=== PATIENT | female | born 1940 | race Caucasian/White ===

== ENCOUNTER 2016-08-16 18:02 | Observation (INO) ==
[2016-08-16] MEDS ORDERED: Aspirin 81 MG TAB.CHEW PO ONE (20:24)
[2016-08-16 20:28] LABS: Bilirubin,Urine Negative (Negative); Blood,Urine Negative (Negative); Clarity,Urine Clear (Clear); Color,Urine Yellow (Yellow); Glucose,Urine (UA) Normal (Normal); Ketones,Urine Negative (Negative); Leukocyte Esterase,Urine Trace (Negative); Nitrite,Urine Negative (Negative); PH,Urine 5.5 pH Units (5.0-8.0); Protein,Urine Negative (Neg-Trace); Specific Gravity,Urine 1.024 (1.010-1.025); Urobilinogen,Urine Normal (Normal)
[2016-08-16 20:29] LABS: Bacteria,Urine None Seen per hpf (None-Few); Hyaline Casts,Urine None Seen per lpf (None-Few); RBC,Urine 0-3 per hpf (0-3); Squamous Epithelial Cell,Urine Moderate per lpf (None-Few)
--- NOTE | 2016-08-16 20:29 | Emergency Department Note ---
Disposition Clinical Impression: Dyspnea on exertion, Neck pain Disposition: Admitted As Inpatient Condition: Good Time of Disposition: 21:34 General Adult HPI - General Chief complaint: ED Dizziness Stated complaint: dizzy, sob, shoulder pain Time Seen by Provider: 08/16/16 18:38 Source: patient Mode of arrival: private vehicle Limitations: no limitations Nursing Notes Reviewed: Yes Vital Signs Reviewed: Yes - History of Present Illness HPI Narrative: 76-year-old female presents today with chief complaint of exertional dyspnea and left-sided neck pain that radiates down to her left shoulder. She does not believe that the pain is worse with exertion and cannot note any inciting or remitting factors. She notes that the pain is a sharp pain. She states that normally she is able to walk 100 feet without any dyspnea, but has been more significant over the last couple days to where she can only walk 10 feet or so without getting short of breath. She has history of COPD, but states that this is under control and denies any cough at this time. She denies any diaphoresis , nausea or vomiting, abdominal pain, change in urination or bowel movements, rashes or edema. She does not also note sensation of vertigo which she specifically notes is worse when bowing down to receiving communion at [facility]. It is also worse when she lies down flat. It is not worse with standing up or turning her head. She states that occasionally it will cause her some lightheadedness, but usually just the vertigo. She has not had a syncope or falls. She is not on any anticoagulants at home. She denies any cardiac history, has not had a workup for her heart that she can recall. Pain Scale: 9 - Related Data Allergies Allergy/AdvReac Type Severity Reaction Status Date / Time Pork/Porcine Containing Allergy Hives Verified 08/16/16 18:32 Products All systems ED: reviewed and negative except as stated. Past Medical History - Past Medical History Attestation: Yes The following information was validated with the patient. Source: patient Medical history: Reports: asthma, COPD Psychiatric history: Reports: no psych history - Social History Smoking Status: Former smoker Smokeless Tobacco Status: No Alcohol use: Reports: none Drug use: Reports: none Physical Exam - Head Head exam: atraumatic, normocephalic, normal inspection - Eye Eye exam: Present: normal appearance, PERRL, EOMI - ENT ENT exam: normal exam, normal oropharynx, mucous membranes moist - Neck Neck exam: Present: normal inspection, full ROM, trachea midline - Chest Chest inspection: Present: normal inspection, symmetric chest wall rise. Chest wall is nontender. - Respiratory Respiratory exam: Clear to auscultation bilaterally without wheezes rales or rhonchi Cardiovascular Cardiovascular exam: Present: regular rate, normal rhythm, normal heart sounds - Abdominal Exam Abdominal exam: Present: soft, Non-Tender. Absent: tenderness, distention, guarding, rebound, rigidity - Extremities Exam Patient's shoulder pain is reproducible with palpation, but not range of motion. - Back Exam Back exam: Present: normal inspection, full ROM. Absent: tenderness, CVA tenderness (R), CVA tenderness (L) - Neurological Exam Neurological exam: Present: alert, oriented X3, CN II-XII intact. Normal cerebellar testing. No nystagmus. Normal motor in all extremities. Vertigo is reproducible with rapidly lying the patient flat from a seated position. - Psychiatric Psychiatric exam: Present: normal affect, normal mood - Skin Skin exam: Present: warm, dry, intact, normal color - General Limitations: no limitations General appearance: alert, in no apparent distress Course - Reevaluation(s) Reevaluation #1: EKG was nonischemic. Troponin, BMP, and CBC were without causes to treat the patient's symptoms. Orthostatic vitals were normal. No acute findings on CT brain or chest x-ray. Patient accepted by hospitalist for further management of her exertional dyspnea and neck pain concerning for chest pain equivalence. Time: 21:33 Vital Signs Temperature 98.3 F 08/16/16 18:27 Pulse Rate 81 08/16/16 18:27 Respiratory Rate 18 08/16/16 18:27 Blood Pressure 123/74 08/16/16 18:27 O2 Sat by Pulse Oximetry 96 08/16/16 18:27 Temperature 97.5 F L 08/17/16 04:04 Pulse Rate 72 08/17/16 04:04 Respiratory Rate 15 08/17/16 04:04 Blood Pressure 93/60 08/17/16 04:04 O2 Sat by Pulse Oximetry 93 08/17/16 04:04 Oxygen Delivery Oxygen Delivery Room Air Medical Decision Making - Lab Data Result diagrams: 08/16/16 20:29 08/16/16 20:29 Lab Results 08/16/16 08/16/16 08/16/16 Range/Units 20:15 20:29 20:29 WBC 7.7 (4.3-11.1) K/mcL RBC 4.86 (3.82-4.97) M/mcL Hgb 14.7 (11.5-15.4) g/dL Hct 44.5 (35.3-44.9) % MCV 91.6 (83.0-100.0) fL MCH 30.2 (28.0-33.3) pg MCHC 33.0 (31.6-35.5) g/dL RDW 14.1 (11.5-14.5) % Plt Count 208 (140-400) K/mcL MPV 9.8 (9.4-12.4) fL Immature Gran % 0.4 (0-4) % Seg Neutrophils % 66.8 % Lymphocytes % 21.2 % Monocytes % 7.3 % Eosinophils % 3.8 % Basophils % 0.5 % Neutrophils # 5.2 (1.6-8.9) K/mcL Lymphocytes # 1.6 (0.6-4.6) K/mcL Monocytes # 0.6 (0.0-1.3) K/mcL Eosinophils # 0.3 (0.0-0.6) K/mcL Basophils # 0.0 (0.0-0.2) K/mcL Immature Plt Fraction 4.6 (1.1-6.1) % Sodium 139 (136-145) mEq/L Potassium 4.4 (3.5-4.5) mEq/L Chloride 104 (98-109) mEq/L Carbon Dioxide 27 (19-29) mEq/L BUN 22 H (7-20) mg/dL Creatinine 1.02 (0.57-1.11) mg/dL Est GFR ( Amer) > 60 (> 60) Est GFR (Non-Af Amer) 53 L (> 60) BUN/Creatinine Ratio 22 (6-26) Glucose 104 H (70-99) mg/dL Calculated Osmolality 292 (280-300) Calcium 10.1 (8.6-10.8) mg/dL Troponin I (0-0.03) ng/mL Urine Color Yellow (Yellow) Urine Clarity Clear (Clear) Urine pH 5.5 (5.0-8.0) pH Units Ur Specific [place] 1.024 (1.010-1.025) Urine Protein Negative (Neg-Trace) mg/dL Urine Glucose (UA) Normal (Normal) mg/dL Urine Ketones Negative (Negative) mg/dL Urine Blood Negative (Negative) Urine Nitrite Negative (Negative) Urine Bilirubin Negative (Negative) Urine Urobilinogen Normal (Normal) mg/dL Ur Leukocyte Esterase Trace H (Negative) Urine Microscopic RBC 0-3 (0-3) per hpf Urine Microscopic WBC 3-5 H (0-3) per hpf Ur Squamous Epith Cells Moderate H (None-Few) per lpf Urine Bacteria None Seen (None-Few) per hpf Hyaline Casts None Seen (None-Few) per lpf Ur Culture Indicated? YES A (NO) 08/16/16 Range/Units 20:29 WBC (4.3-11.1) K/mcL RBC (3.82-4.97) M/mcL Hgb (11.5-15.4) g/dL Hct (35.3-44.9) % MCV (83.0-100.0) fL MCH (28.0-33.3) pg MCHC (31.6-35.5) g/dL RDW (11.5-14.5) % Plt Count (140-400) K/mcL MPV (9.4-12.4) fL Immature Gran % (0-4) % Seg Neutrophils % % Lymphocytes % % Monocytes % % Eosinophils % % Basophils % % Neutrophils # (1.6-8.9) K/mcL Lymphocytes # (0.6-4.6) K/mcL Monocytes # (0.0-1.3) K/mcL Eosinophils # (0.0-0.6) K/mcL Basophils # (0.0-0.2) K/mcL Immature Plt Fraction (1.1-6.1) % Sodium (136-145) mEq/L Potassium (3.5-4.5) mEq/L Chloride (98-109) mEq/L Carbon Dioxide (19-29) mEq/L BUN (7-20) mg/dL Creatinine (0.57-1.11) mg/dL Est GFR ( Amer) (> 60) Est GFR (Non-Af Amer) (> 60) BUN/Creatinine Ratio (6-26) Glucose (70-99) mg/dL Calculated Osmolality (280-300) Calcium (8.6-10.8) mg/dL Troponin I 0.00 (0-0.03) ng/mL Urine Color (Yellow) Urine Clarity (Clear) Urine pH (5.0-8.0) pH Units Ur Specific [place] (1.010-1.025) Urine Protein (Neg-Trace) mg/dL Urine Glucose (UA) (Normal) mg/dL Urine Ketones (Negative) mg/dL Urine Blood (Negative) Urine Nitrite (Negative) Urine Bilirubin (Negative) Urine Urobilinogen (Normal) mg/dL Ur Leukocyte Esterase (Negative) Urine Microscopic RBC (0-3) per hpf Urine Microscopic WBC (0-3) per hpf Ur Squamous Epith Cells (None-Few) per lpf Urine Bacteria (None-Few) per hpf Hyaline Casts (None-Few) per lpf Ur Culture Indicated? (NO) - EKG Data EKG #1 EKG attestation: Yes I reviewed and interpreted this EKG. EKG results narrative: EKG shows normal sinus rhythm at 66 with mild sinus arrhythmia. There is no ST elevation or depression. There are T-wave inversions in V1. No pathologic Q waves. There is no significant change when compared with 04/24/2014. Attestation Statement - Attestation Attestation: I, Rito Spence, examined this patient and my medical decision-making was reviewed with the LINOLE[employer] INSTALLER/PA/Advanced Practice Nurse/Resident Physician. I agree with the documented findings, disposition and treatment plan as described except to the extent set forth below. 76-year-old female presents with concerns of dizziness and shortness of breath. Patient states she has symptoms of room spinning with small movements of her head, this occurs intermittently over the past few weeks. After the start of this she went on vacation where she developed shortness of breath. Patient states she is acutely more short of breath than normal over the past week with inability to walk more than 10 feet before becoming short of breath. Patient denies associated chest pain or diaphoresis with her symptoms. EKG shows normal sinus rhythm with a rate of 66 without evidence of STEMI. Initial troponin was negative. Chest x-ray did not reveal acute pneumonia. CT of the head negative for acute mass or intracranial hemorrhage. Patient is not having vertigo in the emergency department this time. Patient will be admitted to the hospital for further care and evaluation of her weakness, shortness of breath.
[2016-08-16 20:36] LABS: Basophils % 0.5 %; Eosinophils # 0.3 K/mcL (0.0-0.6); Eosinophils % 3.8 %; Hematocrit 44.5 % (35.3-44.9); Hemoglobin 14.7 g/dL (11.5-15.4); Immature Granulocytes % 0.4 % (0-4); Immature Platelets 4.6 % (1.1-6.1); Lymphocytes # 1.6 K/mcL (0.6-4.6); Lymphocytes % 21.2 %; Mean Corpuscular Hemoglobin 30.2 pg (28.0-33.3); Mean Corpuscular Volume 91.6 fL (83.0-100.0); Mean Platelet Volume 9.8 fL (9.4-12.4); Monocytes # 0.6 K/mcL (0.0-1.3); Monocytes % 7.3 %; Neutrophils # 5.2 K/mcL (1.6-8.9); Platelet Count 208 K/mcL (140-400); Red Blood Count 4.86 M/mcL (3.82-4.97); Red Cell Distribution Width 14.1 % (11.5-14.5); Segmented Neutrophils % 66.8 %
[2016-08-16 20:48] LABS: BUN/Creatinine Ratio 22 (6-26); Blood Urea Nitrogen 22 mg/dL (7-20); Calcium 10.1 mg/dL (8.6-10.8); Carbon Dioxide 27 mEq/L (19-29); Chloride 104 mEq/L (98-109); Glucose 104 mg/dL (70-99); Osmolality,Calculated 292 (280-300); Potassium 4.4 mEq/L (3.5-4.5); Sodium 139 mEq/L (136-145); eGFR For African Americans > 60 (> 60); eGFR For Non-African Americans 53 (> 60)
[2016-08-17] MEDS ORDERED: Naloxone 0.4 MG/ML INJ IVP PRN (01:49)
[2016-08-17] MEDS ORDERED: Nitroglycerin 0.4 MG TAB.SUBL SL PRN (01:51)
[2016-08-17] MEDS ORDERED: Albuterol 2.5 MG/3 ML NEBULIZER IH PRN (01:53)
--- NOTE | 2016-08-17 01:53 | Internal Med History&Physical ---
Date of Encounter: 08/17/16 Time of Encounter: 01:52 Assessment and Plan (1) Dyspnea on exertion Current visit: Yes Status: Acute Pt has recent long distance travel in the car; family h/o VTE in her mother and elevated D-dimer. Pt has no clinical signs suggestive of COPD exacerbation. Will request for CTA chest to exclude pulmonary embolus. (2) Neck pain Current visit: Yes Status: Acute Musculoskeletal pain versus radiculopathy. Will obtain MRI of the cervical spine. Supportive care (3) COPD (chronic obstructive pulmonary disease) Current visit: Yes Status: Chronic Continue home meds, when list is available Qualifiers: COPD type: unspecified COPD Qualified Code(s): J44.9 - Chronic obstructive pulmonary disease, unspecified Internal Medicine - H&P: HPI Chief complaint: Left side neck pain and shoulder pain; Shortness of breath Admitted From: Emergency Dept Plans for Post Hospital Care: Home History of present illness: Ms. Cadet is a 76 year old female With Past medical history significant for COPD (uses nebs), lower back pain - presents to the ER with left sided neck pain / pain in the left shoulder, unrelated to exertion. Moderate in intensity and sharp. She denies chest pain or injury to the shoulder. She also reports some shortness of breath on minimal exertion, which is unusual for her (she has baseline shortness of breath due to COPD, but now is worse). She denies significant cough, expectoration, wheezing. She denies fever, chills, nausea, vomiting, abdominal pain, dysuria, hematuria, changes in bowels, leg swelling / pain. She reports recent car trip to [place], with her (she reports that they were stopping about every 2 hours for break and were rotating driving) . She has family h/o DVT in her mother. Pt was evaluated in emergency department. Troponin negative; CXR showed no acute process. She is admitted to the hospitalist service, for further management. Past Med Surg Social Fam HX - Past Medical History Medical history: asthma, COPD Psychiatric history: no psych history - Social History Smoking Status: Former smoker Smokeless Tobacco Status: No Alcohol use: none Drug use: none - Family History Mother Living Status: Age at : 44 Cause of : Blood clot Hx Family Cardiac Disorders: Yes (Stroke, PAD) Hx Family Respiratory Disorders: Yes Hx Family Cancer: No Hx Family GI Disorders: No Hx Family Genitourinary Disorders: No Hx Family Endocrine Disorder: No Hx Family Musculoskeletal Disorders: No Hx Family Neuromuscular Disorders: No Hx Family Neurologic Disorders: No Hx Family HEENT Disorders: No Hx Family Autoimmune Disorders: No Hx Family Reproductive Disorders: No Hx Family Psychosocial Disorders: No Hx Family Medical Disorders: No Father Living Status: Age at : 77 Cause of : Heart failure Hx Family Cardiac Disorders: Yes Internal Medicine - H&P: Meds Montelukast Sodium [Singulair] 10 mg PO 08/16/16 [History] Allergies Pork/Porcine Containing Products Allergy (Verified 08/16/16 18:32) Hives All Systems PM: A 10-system review of systems was performed and is negative for pertinent findings except as documented above in the HPI. - Constitutional Vitals: Temp Pulse Resp BP Pulse Ox 98.1 F 75 15 122/65 94 08/17/16 00:08 08/17/16 00:08 08/17/16 00:08 08/17/16 00:08 08/17/16 00:08 Exam: General: Not in acute distress at the time of my evaluation HEENT: Oral mucosa is moist. No conjunctival palor or scleral icterus Neck: No obvious neck swellings. There is tenderness over the left side of the neck and shoulder. Lungs: Clear to auscultation Cardiac: Regular rate and rhythm. No significant murmurs Abdomen: Soft, non tender. Bowel sounds present Genitourinary: No jauregui catheter Neurological: Alert and oriented. No gross localizing deficits Psych: Not aggressive or agitated Extremities: no significant leg edema Skin: No generalized rash Internal Med - H&P Results - Labs CBC & Chem 7: 08/16/16 20:29 08/16/16 20:29 - EKG Data -: EKG Interpreted by Myself EKG shows normal: sinus rhythm Rate: normal - Impressions ITS Impressions Chest X-Ray 08/16/16 20:01 IMPRESSION: No acute process. D/ / Darin Kenny MD / Darin Kenny MD Interpreting Provider: Darin Kenny MD Head CT 08/16/16 20:01 IMPRESSION: Volume loss with mild chronic white matter microvascular ischemic disease. D/ / Chandu Augustin MD / Chandu Augustin MD Interpreting Provider: Chandu Augustin MD - VTE Reasons for not Prescribing Prophylaxis: Treatment not Indicated - Low risk for VTE
[2016-08-17 06:10] LABS: Chol/HDL Ratio 3.3 (0-4.9)
[2016-08-17] MEDS ORDERED: Acetaminophen 325 MG TABLET PO PRN (06:32)
[2016-08-17] MEDS ORDERED: *HR* OxyCODONE Immed Rel 5 MG TABLET PO PRN (06:32)
[2016-08-17] MEDS: 0.9 % Sodium Chloride 1,000 ML IVC SCH ×2 (06:40→19:27)
[2016-08-17] MEDS ORDERED: Levofloxacin 750 MG/150 ML 750 MG/150 ML BAG IVPB SCH (09:00)
[2016-08-17] MEDS: *HR* HYDROcodone/Acet 5/325 mg TABLET PO PRN ×2 (09:11→22:41)
[2016-08-17] MEDS: Ondansetron 4 MG/2 ML VIAL IVP PRN ×2 (10:52→19:26)
[2016-08-17] MEDS ORDERED: *HR* Promethazine 25 MG/ML VIAL IVP PRN (14:17)
--- NOTE | 2016-08-17 16:19 | Event Note ---
Date of Encounter: 08/17/16 Time of Encounter: 10:30 Patient seen and examined. On examination, patient actively vomiting. During that time, she stated that she felt very weak and very shaky. She was then given ondansetron and her symptoms improved. Patient continues to have dyspnea on exertion. Chest x-ray negative. Head CT negative. CTA consistent with multifocal pneumonia and the patient was started on levofloxacin. No recent admissions- likely community acquired of unknown bacterial etiology. She is currently tolerating room air and has fair to good aeration throughout. Heart rate stable. Hypotension noted and has been stable since this morning, will increase IV fluids. Later on in the morning, patient became nauseated again and Phenergan was added to her regimen. Urinalysis is abnormal-Will await culture given that she has good coverage with levofloxacin that she is on for her pneumonia. She denies dysuria and states that she has been worked up in the recent past for hematuria, no blood noted in today's sample. She is alert and oriented 3 on examination. Cervical spine MRI revealing chronic degenerative changes and also revealing enlargement of her thyroid gland which has been evaluated in the past-TSH normal in January 2016, will recheck. Will continue to address her nausea and vomiting. Possible discharge tomorrow pending clinical outcomes. ITS Impressions Chest X-Ray 08/16/16 20:01 IMPRESSION: No acute process. D/ / Darin Kenny MD / Darin Kenny MD Interpreting Provider: Darin Kenny MD Head CT 08/16/16 20:01 IMPRESSION: Volume loss with mild chronic white matter microvascular ischemic disease. D/ / Chandu Augustin MD / Chandu Augustin MD Interpreting Provider: Chandu Augustin MD Chest CTA 08/17/16 06:10 IMPRESSION: 1. No findings of pulmonary embolism. 2. New nodular consolidative opacities in the left upper and left lower lobes as well as focal groundglass opacities in the right upper and bilateral lower lobes, likely developing multifocal pneumonia. Recommend follow-up CT in 3 months to ensure resolution. 3. Long-term stability of solid nodules measuring 0.4 cm bilaterally, consistent with a benign process such as granulomatous disease. 4. 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 Please refer to prior thyroid sonograms further detail. D/ / Gee Casiano MD / Gee Casiano MD Interpreting Provider: Gee Casiano MD Cervical Spine MRI 08/17/16 06:14 IMPRESSION: 1. Degenerative changes of the cervical spine contribute to minimal spinal canal stenosis at C5-C6. No spinal canal stenosis at the remaining levels. 2. Degenerative changes contribute to scattered neural foraminal narrowing as above. 3. Mild grade 1 anterolisthesis at C3-C4 through T2-T3. 4. Enlargement of the thyroid gland, left greater than right with the left lobe extending into the superior mediastinum. Please refer to prior thyroid ultrasounds for better evaluation. D/ / Luiz Bernal MD / Luiz Bernal MD Interpreting Provider: Luiz Bernal MD
[2016-08-18 04:53] LABS: BUN/Creatinine Ratio 14 (6-26); Blood Urea Nitrogen 12 mg/dL (7-20); Calcium 9.5 mg/dL (8.6-10.8); Carbon Dioxide 27 mEq/L (19-29); Chloride 109 mEq/L (98-109); Glucose 89 mg/dL (70-99); Osmolality,Calculated 291 (280-300); Potassium 4.4 mEq/L (3.5-4.5); Sodium 141 mEq/L (136-145); eGFR For African Americans > 60 (> 60); eGFR For Non-African Americans > 60 (> 60)
[2016-08-18 05:07] LABS: Thyroid Stimulating Hormone 1.087 mcIU/mL (0.350-4.840)
[2016-08-18] MEDS: Ondansetron 4 MG/2 ML VIAL IVP PRN (07:31)
[2016-08-18] MEDS ORDERED: Ipratropium/Albuterol Neb 3 ML IH PRN (07:38)
[2016-08-18 07:41] VITALS: BP 124/63
--- NOTE | 2016-08-18 08:30 | Electrocardiograph Report ---
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
[2016-08-18] MEDS ORDERED: Budesonide/Formoterol 160/4.5 MDI IH SCH (10:00)
--- NOTE | 2016-08-18 10:16 | Discharge Summary ---
Date of Encounter: 08/18/16 Time of Encounter: 09:15 - Discharge Diagnosis (1) Multifocal pneumonia Priority: Primary Status: Acute Comments: imaging consistent with multifocal pneumonia. Treated with levofloxacin while admitted. Tolerating room air while admitted and on day of discharge, denied shortness of breath above her normal. (2) Abnormal urinalysis Priority: Primary Status: Ruled-out Comments: Urine culture negative. Patient denied dysuria. (3) Multinodular goiter Priority: Secondary Status: Chronic Comments: Stable on imaging. TSH normal. (4) Dyspnea on exertion Priority: Primary Status: Resolved (5) Neck pain Priority: Secondary Status: Chronic Comments: Cervical spine MRI unremarkable for acute processes. Follow-up outpatient. (6) COPD (chronic obstructive pulmonary disease) Priority: Secondary Status: Chronic Qualifiers: COPD type: unspecified COPD Qualified Code(s): J44.9 - Chronic obstructive pulmonary disease, unspecified - Discharge Medications Prescriptions: levoFLOXacin [Levofloxacin] 750 mg PO DAILY #7 tablet Ondansetron HCl 4 mg PO Q6H PRN #12 tablet PRN Reason: Nausea And Vomiting Home Medications: Montelukast Sodium [Singulair] 10 mg PO DAILY 08/16/16 [History] Albuterol Sulfate [Proair Hfa] 2 puff IH Q6H PRN 08/17/16 [History] Calcium Carbonate/Vitamin D3 [Calcium 600-Vit D3 200 Tablet] 1 tab PO DAILY [History] Fluticasone/Salmeterol [Advair 500-50 Diskus] 1 puff IH BID 08/17/16 [History] HYDROcodone/Acet 5/325 mg [[place] 5-325 mg] 1 tab PO Q6H PRN 08/17/16 [History] Ipratropium [ATROVENT Inhaler] 2 puff IH QID 08/17/16 [History] Ipratropium/Albuterol Neb [Duoneb] 3 ml IH Q6HR PRN 08/17/16 [History] Meclizine HCl [Verticalm] 25 mg PO BID PRN 08/17/16 [History] Multivitamin [One Daily Essential] 1 tab PO DAILY 08/17/16 [History] Ondansetron HCl 4 mg PO Q6H PRN #12 tablet 08/18/16 [Rx] levoFLOXacin [Levofloxacin] 750 mg PO DAILY #7 tablet 08/18/16 [Rx] Allergies/Adverse Reactions: Allergies Pork/Porcine Containing Products Allergy (Verified 08/16/16 18:32) Hives Procedures/tests Complete & Pending: Procedures Performed prior 72 hours Category Date Time Status CTA chest [CT angio chest] [CT] Stat Cat Scan 08/17/16 06:10 Completed MR cervical spine wo con [MR] Routine MRI 08/17/16 06:14 Completed Date of admission: 08/16/16 22:52 Primary care physician: Rito Masterson MD Discharging clinician: Sheridan Amin Anticipated date of discharge: 08/18/16 - Patient Status Disposition: Home, Self-Care Condition: Good Functional capacity at discharge: independent ambulation Overall status at discharge: patient is back to baseline - Discharge Instructions Follow Up With: Rito Masterson MD [Primary Care Provider] - 08/20/16 3:00 pm (With Dr. Ty ) Additional Instructions: Follow-up with primary care provider as scheduled - Diet and Activity Activity: increase activity as tolerated Diet: regular diet Hospital course: Ms. Cadet is a 76 year old female with past medical history of COPD, lower back pain, former tobacco abuse. Patient presented to the emergency department with a chief complaint of left-sided neck pain, left shoulder pain unrelated to exertion. Patient stating the pain is sharp. She denied chest pain or injuries to her shoulder. Patient also endorsed mild shortness of breath with exertion which is a new symptom for her. Patient denied cough, wheezing, fever , abdominal pain or other symptoms. Patient stating that she was in a recent car trip to [place] with her states they stopped every 2 hours to break and rotate drivers. Workup in the emergency department unremarkable. Chest x-ray negative. Head CT negative for acute processes. Patient was admitted to the hospitalist service for further evaluation and management. D- dimer elevated and the chest CTA was obtained which ruled out a PE but did reveal multifocal pneumonia. Patient was started on levofloxacin and observed overnight. She remained stable and on day of discharge, she tolerated room air and denied shortness of breath above her norm. She also stated her dyspnea on exertion have resolved. Echocardiogram unremarkable with ejection fraction of 60-65%. Patient was euvolemic on examination. Regarding her neck pain, cervical spine MRI was obtained which revealed chronic degenerative changes without acute processes. Patient had an abnormal urinalysis however she denied dysuria and urine culture was negative. During this admission, patient had frequent bouts of nausea with one bout of vomiting. Symptoms were controlled with ondansetron and the patient was sent home on ondansetron. Of note, CTA also revealed long-term stability of her multinodular goiter, TSH normal. She was able to tolerate a regular diet prior to discharge. She initially was weak and shaky however on day of discharge, she had an upright and steady gait and denied any weakness. She was discharged home in stable condition with close outpatient follow-up recommended. ITS Impressions Chest X-Ray 08/16/16 20:01 IMPRESSION: No acute process. D/ / Darin Kenny MD / Darin Kenny MD Interpreting Provider: Darin Kenny MD Head CT 08/16/16 20:01 IMPRESSION: Volume loss with mild chronic white matter microvascular ischemic disease. D/ / Chandu Augustin MD / Chandu Augustin MD Interpreting Provider: Chandu Augustin MD Chest CTA 08/17/16 06:10 IMPRESSION: 1. No findings of pulmonary embolism. 2. New nodular consolidative opacities in the left upper and left lower lobes as well as focal groundglass opacities in the right upper and bilateral lower lobes, likely developing multifocal pneumonia. Recommend follow-up CT in 3 months to ensure resolution. 3. Long-term stability of solid nodules measuring 0.4 cm bilaterally, consistent with a benign process such as granulomatous disease. 4. 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 Please refer to prior thyroid sonograms further detail. D/ / Gee Casiano MD / Gee Casiano MD Interpreting Provider: Gee Casiano MD Cervical Spine MRI 08/17/16 06:14 IMPRESSION: 1. Degenerative changes of the cervical spine contribute to minimal spinal canal stenosis at C5-C6. No spinal canal stenosis at the remaining levels. 2. Degenerative changes contribute to scattered neural foraminal narrowing as above. 3. Mild grade 1 anterolisthesis at C3-C4 through T2-T3. 4. Enlargement of the thyroid gland, left greater than right with the left lobe extending into the superior mediastinum. Please refer to prior thyroid ultrasounds for better evaluation. D/ / Luiz Bernal MD / Luiz Bernal MD Interpreting Provider: Luiz Bernal MD Echocardiogram impressions: LVEF 60-65%. Normal chamber size, wall thickness and function. Mild left ventricular diastolic dysfunction. Atypical septal motion noted. Normal right ventricular structure and function. No evidence of pulmonary hypertension. No significant valvular dysfunction. - Time Spent with Patient Total time spent providing and/or coordinating discharge services: - Constitutional Vitals: Temp Pulse Resp BP Pulse Ox 97.9 F 71 16 124/63 93 08/18/16 07:40 08/18/16 07:40 08/18/16 07:40 08/18/16 07:40 08/18/16 07:40 General appearance: Present: A&O X 3, pleasant, no acute distress, answers questions appropriately - Head Head exam: Present: atraumatic, normocephalic - Eye Eye exam: Present: PERRL, conjuntiva pink, sclera anicteric Pupils: Present: PERRL - Neck Neck exam general surgery: Present: supple, trachea midline. Absent: lymphadenopathy - Respiratory Respiratory exam: Present: decreased breath sounds, wheezes. Absent: accessory muscle use, rales, respiratory distress, rhonchi - Cardiovascular Cardiovascular exam: Present: RRR, +S1, +S2. Absent: diastolic murmur, gallop, rubs, systolic murmur - GI/Abdominal GI/Abdominal exam: Present: normal bowel sounds, soft, no peritoneal signs. Absent: distended, tenderness - Extremities Exam Extremities exam: Present: warm, radial pulses palpable and symetrical. Absent : calf tenderness, cyanotic, pedal edema - Neurological Exam Neurological exam: Present: alert, CN II-XII intact, normal gait, oriented X3, no focal deficits, strengths equal and symetr throughout. Absent: pronater drift, facial droop, speech deficit - Skin Skin exam: Present: dry, intact, normal color, warm - VTE Reasons for not Prescribing Prophylaxis: Treatment not Indicated - Low risk for VTE
[2016-08-18] MEDS ORDERED: Ipratropium 1 PUFF INHALER IH SCH (11:00)
[2016-08-19] MEDS ORDERED: Levofloxacin 750 MG/150 ML 750 MG/150 ML BAG IVPB SCH (09:00)
== END 2016-08-18 11:30 | disposition home or self-care (01) ==
LOC: 3BNU 18:02 → EMEROO 18:02 → SUATTDRO 22:52 → 3BNU 08-17 00:02
PROVIDERS: ADMIT Internal Medicine; ATTEND Nurse Practitioner Family

== ENCOUNTER 2018-12-11 13:54 | Inpatient (IN) ==
[2018-12-11] MEDS ORDERED: Ipratropium/Albuterol Neb 3 ML IH ONE ×2 (14:23→16:20)
[2018-12-11] MEDS ORDERED: methylPREDNISolone 125 MG/2 ML VIAL IVP ONE (14:23)
[2018-12-11] MEDS ORDERED: Acetaminophen 325 MG TABLET PO ONE (14:25)
[2018-12-11 15:04] LABS: Basophils % 0.4 %; Eosinophils % 0.3 %; Hematocrit 40.8 % (35.3-44.9); Hemoglobin 13.6 g/dL (11.5-15.4); Immature Granulocytes % 0.3 % (0-4); Lymphocytes # 0.4 K/mcL (0.6-4.6); Lymphocytes % 5.9 %; Mean Corpuscular HGB Conc 33.3 g/dL (31.6-35.5); Mean Corpuscular Hemoglobin 29.7 pg (28.0-33.3); Mean Corpuscular Volume 89.1 fL (83.0-100.0); Mean Platelet Volume 10.3 fL (9.4-12.4); Monocytes # 0.4 K/mcL (0.0-1.3); Monocytes % 5.6 %; Neutrophils # 6.4 K/mcL (1.6-8.9); Platelet Count 164 K/mcL (140-400); Red Blood Count 4.58 M/mcL (3.82-4.97); Segmented Neutrophils % 87.5 %; White Blood Count 7.3 K/mcL (4.3-11.1)
[2018-12-11 15:09] LABS: BUN/Creatinine Ratio 20 (6-26); Blood Urea Nitrogen 14 mg/dL (8-23); Calcium 9.4 mg/dL (8.6-10.3); Carbon Dioxide 24 mEq/L (23-29); Chloride 101 mEq/L (98-107); Glucose 118 mg/dL (70-105); Osmolality,Calculated 284 (280-300); Potassium 4.4 mEq/L (3.5-5.1); Sodium 136 mEq/L (136-145); Troponin I < 0.03 ng/mL (< 0.04); eGFR For African Americans > 60 (> 60); eGFR For Non-African Americans > 60 (> 60)
[2018-12-11] MEDS ORDERED: Mag Hydrox/Al Hydrox/Simeth 30 ML UDC PO PRN (17:01)
[2018-12-11] MEDS ORDERED: Naloxone 0.4 MG/ML INJ IVP PRN (17:01)
[2018-12-11] MEDS ORDERED: MOM Conc 10 ML UD.LIQ PO PRN (17:01)
[2018-12-11] MEDS ORDERED: Ondansetron 4 MG/2 ML VIAL IVP PRN (17:01)
[2018-12-11] MEDS ORDERED: *HR* Promethazine 25 MG/ML VIAL IVP PRN (17:01)
[2018-12-11] MEDS ORDERED: Ipratropium/Albuterol Neb 3 ML IH PRN (17:03)
[2018-12-11] MEDS: Ipratropium/Albuterol Neb 3 ML IH SCH ×2 (19:19→23:11)
[2018-12-11] MEDS: *HR* Heparin 5,000 UNIT/ML VIAL SQ SCH (19:47)
[2018-12-11 21:08] LABS: Adenovirus Not Detected (Not Detect); Bordetella Pertussis Not Detected (Not Detect); Chlamydophila pneumoniae Not Detected (Not Detect); Coronavirus 229E Not Detected (Not Detect); Coronavirus HKU1 Not Detected (Not Detect); Coronavirus NL63 Not Detected (Not Detect); Coronavirus OC43 Not Detected (Not Detect); Human Metapneumovirus Not Detected (Not Detect); Human Rhinovirus/Enterovirus Not Detected (Not Detect); Influenza A Subtype 2009 H1 Not Detected (Not Detect); Influenza A Untypeable Not Detected (Not Detect); Influenza B Not Detected (Not Detect); Mycoplasma pneumoniae Not Detected (Not Detect); Parainfluenza Virus 1 Not Detected (Not Detect); Parainfluenza Virus 2 Not Detected (Not Detect); Parainfluenza Virus 3 Not Detected (Not Detect); Parainfluenza Virus 4 Not Detected (Not Detect); Respiratory Syncytial Virus Not Detected (Not Detect)
[2018-12-12] MEDS: methylPREDNISolone 125 MG/2 ML VIAL IVP SCH ×3 (00:05→17:03)
[2018-12-12] MEDS: traMADol 50 MG TABLET PO PRN (00:40)
[2018-12-12 02:46] LABS: Hematocrit 37.4 % (35.3-44.9); Immature Granulocytes % 0.5 % (0-4); Lymphocytes # 0.3 K/mcL (0.6-4.6); Lymphocytes % 5.9 %; Mean Corpuscular HGB Conc 34.8 g/dL (31.6-35.5); Mean Corpuscular Hemoglobin 30.2 pg (28.0-33.3); Mean Platelet Volume 10.1 fL (9.4-12.4); Monocytes % 0.9 %; Platelet Count 154 K/mcL (140-400); Red Cell Distribution Width 13.6 % (11.5-14.5); Segmented Neutrophils % 92.7 %; White Blood Count 4.3 K/mcL (4.3-11.1)
[2018-12-12 03:05] LABS: BUN/Creatinine Ratio 27 (6-26); Blood Urea Nitrogen 17 mg/dL (8-23); Calcium 9.2 mg/dL (8.6-10.3); Carbon Dioxide 21 mEq/L (23-29); Chloride 103 mEq/L (98-107); Glucose 195 mg/dL (70-105); Osmolality,Calculated 285 (280-300); Potassium 4.2 mEq/L (3.5-5.1); Sodium 134 mEq/L (136-145); eGFR For African Americans > 60 (> 60); eGFR For Non-African Americans > 60 (> 60)
[2018-12-12] MEDS: Ipratropium/Albuterol Neb 3 ML IH SCH ×5 (04:17→19:18)
[2018-12-12] MEDS: *HR* Heparin 5,000 UNIT/ML VIAL SQ SCH ×2 (05:03→16:53)
[2018-12-12] MEDS: Tiotropium 18 MCG inhalation IH SCH (07:26)
[2018-12-12] MEDS: Azithromycin 250 MG TABLET PO SCH (07:46)
[2018-12-12] MEDS: Budesonide/Formoterol 160/4.5 1 PUFF INH IH SCH ×2 (11:18→19:18)
[2018-12-12] MEDS: Acetaminophen 325 MG TABLET PO PRN (14:22)
[2018-12-13] MEDS: Ipratropium/Albuterol Neb 3 ML IH SCH ×6 (00:13→20:23)
[2018-12-13] MEDS: methylPREDNISolone 125 MG/2 ML VIAL IVP SCH ×2 (00:44→08:00)
[2018-12-13] MEDS: *HR* Heparin 5,000 UNIT/ML VIAL SQ SCH ×2 (06:00→17:11)
[2018-12-13 06:15] LABS: Hematocrit 35.1 % (35.3-44.9); Hemoglobin 11.9 g/dL (11.5-15.4); Mean Corpuscular HGB Conc 33.9 g/dL (31.6-35.5); Mean Corpuscular Hemoglobin 30.3 pg (28.0-33.3); Mean Corpuscular Volume 89.3 fL (83.0-100.0); Mean Platelet Volume 10.4 fL (9.4-12.4); Platelet Count 174 K/mcL (140-400); Red Blood Count 3.93 M/mcL (3.82-4.97); Red Cell Distribution Width 13.3 % (11.5-14.5)
[2018-12-13 06:35] LABS: BUN/Creatinine Ratio 33 (6-26); Blood Urea Nitrogen 24 mg/dL (8-23); Calcium 9.5 mg/dL (8.6-10.3); Carbon Dioxide 26 mEq/L (23-29); Chloride 103 mEq/L (98-107); Glucose 183 mg/dL (70-105); Osmolality,Calculated 295 (280-300); Potassium 4.3 mEq/L (3.5-5.1); Sodium 138 mEq/L (136-145); eGFR For African Americans > 60 (> 60); eGFR For Non-African Americans > 60 (> 60)
[2018-12-13] MEDS: Budesonide/Formoterol 160/4.5 1 PUFF INH IH SCH ×2 (07:27→20:24)
[2018-12-13] MEDS: Tiotropium 18 MCG inhalation IH SCH (07:28)
[2018-12-13] MEDS: Azithromycin 250 MG TABLET PO SCH (08:00)
[2018-12-13] MEDS: Acetaminophen 325 MG TABLET PO PRN (13:53)
[2018-12-13] MEDS: predniSONE 20 MG TABLET PO SCH (16:58)
[2018-12-13] MEDS ORDERED: MethylPREDNISolone 40 MG/ML VIAL IVP SCH (18:00)
[2018-12-13] MEDS: traMADol 50 MG TABLET PO PRN (22:10)
[2018-12-14] MEDS: Ipratropium/Albuterol Neb 3 ML IH SCH ×4 (00:31→11:33)
[2018-12-14] MEDS: *HR* Heparin 5,000 UNIT/ML VIAL SQ SCH (05:00)
[2018-12-14] MEDS: Tiotropium 18 MCG inhalation IH SCH (07:25)
[2018-12-14] MEDS: Budesonide/Formoterol 160/4.5 1 PUFF INH IH SCH (07:25)
[2018-12-14] MEDS: Azithromycin 250 MG TABLET PO SCH (07:58)
[2018-12-14] MEDS: predniSONE 20 MG TABLET PO SCH (07:58)
[2018-12-14 11:56] VITALS: BP 131/81
== END 2018-12-14 15:35 | disposition home or self-care (01) | DRG 192 ==
LOC: EMEROOARM 13:54 → 3BNU 13:54 → SUATTDRO 17:14 → 3BNU 17:21
PROVIDERS: ADMIT Internal Medicine; ATTEND Internal Medicine

== ENCOUNTER 2020-06-06 16:13 | Inpatient (IN) ==
[2020-06-06] MEDS ORDERED: *HR* Ticagrelor 90 MG TABLET ONE (16:33)
[2020-06-06] MEDS ORDERED: *HR* Heparin 5,000 UNIT/ML VIAL ONE (16:33)
[2020-06-06] MEDS ORDERED: *HR* Heparin 5,000 UNIT/ML VIAL IVP ONE ×2 (16:33→16:39)
[2020-06-06] MEDS ORDERED: Aspirin 325 MG TABLET PO ONE (16:33)
[2020-06-06] MEDS ORDERED: 0.9 % Sodium Chloride 1,000 ML ONE (16:34)
[2020-06-06] MEDS ORDERED: Aspirin 81 MG TAB.CHEW ONE (16:34)
[2020-06-06] MEDS ORDERED: *HR* Heparin 5,000 UNIT/ML VIAL IVP PRN ×2 (16:39)
[2020-06-06] MEDS ORDERED: Aspirin 81 MG TAB.CHEW PO STA (16:41)
[2020-06-06] MEDS ORDERED: *HR* Ticagrelor 90 MG TABLET PO ONE (16:44)
[2020-06-06] MEDS ORDERED: Heparin 25,000UNIT/250ML 1/2NS 25,000 UNIT/250 ML IV.SOLN IVC SCH ×2 (16:45)
[2020-06-06] MEDS ORDERED: *HR* Heparin 10,000 UNIT/10 ML VIAL ONE (16:56)
[2020-06-06] MEDS ORDERED: 0.9 % Sodium Chloride 2,000 ML ONE (16:56)
[2020-06-06] MEDS ORDERED: Heparin 1,000 UNITS/500 mL 500 ML ONE (16:56)
[2020-06-06] MEDS ORDERED: Nitroglycerin 1,000 MCG/5 ML VIAL IV ONE (16:56)
[2020-06-06] MEDS ORDERED: ISOVUE-370 200 ML INFUS..BTL ONE ×2 (16:56→18:20)
[2020-06-06] MEDS ORDERED: *HR* Midazolam HCl 2 MG/2 ML VIAL ONE (17:05)
[2020-06-06] MEDS ORDERED: *HR* FentaNYL (PF) 100 MCG/2 ML VIAL ONE (17:05)
[2020-06-06] MEDS ORDERED: Tirofiban 12.5 MG/250ML 12.5 MG/250 ML BAG ONE (17:09)
[2020-06-06] MEDS ORDERED: Perflutren Lipid Microsphere 1.3 ML in 0.9 % Sodium Chloride 8.7 ML IVP PRN (17:13)
[2020-06-06] MEDS ORDERED: Tirofiban 12.5 MG/250ML 12.5 MG/250 ML BAG IVC SCH (17:15)
[2020-06-06] MEDS ORDERED: Ondansetron 4 MG/2 ML VIAL ONE ×2 (17:24→18:35)
[2020-06-06 17:33] LABS: Basophils % 0.6 %; Eosinophils # 0.1 K/mcL (0.0-0.6); Eosinophils % 1.4 %; Hematocrit 43.5 % (35.3-44.9); Hemoglobin 13.8 g/dL (11.5-15.4); Immature Granulocytes % 0.3 % (0-4); Lymphocytes % 15.7 %; Mean Corpuscular HGB Conc 31.7 g/dL (31.6-35.5); Mean Corpuscular Hemoglobin 29.1 pg (28.0-33.3); Mean Corpuscular Volume 91.6 fL (83.0-100.0); Mean Platelet Volume 10.1 fL (9.4-12.4); Monocytes # 0.4 K/mcL (0.0-1.3); Monocytes % 6.6 %; Neutrophils # 4.7 K/mcL (1.6-8.9); Platelet Count 161 K/mcL (140-400); Red Blood Count 4.75 M/mcL (3.82-4.97); Red Cell Distribution Width 13.7 % (11.5-14.5); Segmented Neutrophils % 75.4 %; White Blood Count 6.2 K/mcL (4.3-11.1)
[2020-06-06 17:39] LABS: Prothrombin Time 11.5 Seconds (9.4-12.1)
[2020-06-06 17:42] LABS: Activated Partial Thrombo Time 28.2 Seconds (26.0-36.0)
[2020-06-06] MEDS ORDERED: *HR* Atropine Sulfate 1 MG/10 ML SYRINGE ONE (17:51)
[2020-06-06 18:15] LABS: BUN/Creatinine Ratio 19 (6-26); Blood Urea Nitrogen 16 mg/dL (8-23); Calcium 9.3 mg/dL (8.6-10.3); Carbon Dioxide 25 mEq/L (23-29); Chloride 104 mEq/L (98-107); Glucose 131 mg/dL (70-105); Osmolality,Calculated 291 (280-300); Potassium 3.6 mEq/L (3.5-5.1); Sodium 139 mEq/L (136-145); eGFR For African Americans > 60 (> 60); eGFR For Non-African Americans > 60 (> 60)
[2020-06-06 18:16] LABS: Troponin I 0.31 ng/mL (< 0.04)
[2020-06-06] MEDS ORDERED: Ondansetron 4 MG/2 ML VIAL IVP PRN (21:46)
[2020-06-06] MEDS ORDERED: *HR* Promethazine 25 MG/ML VIAL IM PRN (21:47)
[2020-06-07] MEDS: *HR* Ticagrelor 90 MG TABLET PO SCH ×3 (01:02→21:29)
[2020-06-07 06:13] LABS: Basophils % 0.6 %; Eosinophils # 0.2 K/mcL (0.0-0.6); Eosinophils % 2.2 %; Hematocrit 38.4 % (35.3-44.9); Hemoglobin 12.4 g/dL (11.5-15.4); Immature Granulocytes % 0.6 % (0-4); Lymphocytes % 13.6 %; Mean Corpuscular HGB Conc 32.3 g/dL (31.6-35.5); Mean Corpuscular Hemoglobin 29.2 pg (28.0-33.3); Mean Corpuscular Volume 90.4 fL (83.0-100.0); Mean Platelet Volume 9.6 fL (9.4-12.4); Monocytes # 0.5 K/mcL (0.0-1.3); Monocytes % 6.7 %; Neutrophils # 5.5 K/mcL (1.6-8.9); Platelet Count 169 K/mcL (140-400); Red Blood Count 4.25 M/mcL (3.82-4.97); Red Cell Distribution Width 13.7 % (11.5-14.5); Segmented Neutrophils % 76.3 %; White Blood Count 7.2 K/mcL (4.3-11.1)
[2020-06-07 06:31] LABS: BUN/Creatinine Ratio 20 (6-26); Blood Urea Nitrogen 16 mg/dL (8-23); Calcium 8.8 mg/dL (8.6-10.3); Carbon Dioxide 26 mEq/L (23-29); Chloride 107 mEq/L (98-107); Glucose 133 mg/dL (70-105); Osmolality,Calculated 287 (280-300); Potassium 4.4 mEq/L (3.5-5.1); Sodium 137 mEq/L (136-145); eGFR For African Americans > 60 (> 60); eGFR For Non-African Americans > 60 (> 60)
[2020-06-07] MEDS: Aspirin 81 MG TAB.CHEW PO SCH (09:26)
[2020-06-07] MEDS: 0.9 % Sodium Chloride 1,000 ML IVC SCH ×2 (11:20→21:30)
[2020-06-07] MEDS ORDERED: NON-FORMULARY MEDICATION 1 EACH EACH (Fluticasone/Umeclidin/Vilanter [Trelegy Ellipta 100- IH SCH (11:30)
[2020-06-07] MEDS ORDERED: Ipratropium/Albuterol Neb 3 ML IH PRN (11:30)
[2020-06-07] MEDS: Loratadine 10 MG TABLET PO SCH (12:32)
[2020-06-07] MEDS: Tiotropium 10 INH DOSE IH SCH (14:30)
[2020-06-07] MEDS: Budesonide/Formoterol 160/4.5 1 PUFF INH IH SCH ×2 (14:31→21:12)
[2020-06-07] MEDS: *HR* Heparin 5,000 UNIT/ML VIAL SQ SCH (17:00)
[2020-06-08] MEDS: *HR* Heparin 5,000 UNIT/ML VIAL SQ SCH ×2 (06:43→17:12)
[2020-06-08] MEDS: Aspirin 81 MG TAB.CHEW PO SCH (08:25)
[2020-06-08] MEDS: *HR* Ticagrelor 90 MG TABLET PO SCH ×2 (08:25→20:09)
[2020-06-08] MEDS: Loratadine 10 MG TABLET PO SCH (08:25)
[2020-06-08 09:16] LABS: Basophils % 0.4 %; Eosinophils # 0.2 K/mcL (0.0-0.6); Eosinophils % 4.3 %; Hemoglobin 11.4 g/dL (11.5-15.4); Immature Granulocytes % 0.4 % (0-4); Lymphocytes # 0.9 K/mcL (0.6-4.6); Mean Corpuscular HGB Conc 31.7 g/dL (31.6-35.5); Mean Corpuscular Volume 94.7 fL (83.0-100.0); Mean Platelet Volume 9.6 fL (9.4-12.4); Monocytes # 0.3 K/mcL (0.0-1.3); Monocytes % 4.7 %; Neutrophils # 4.1 K/mcL (1.6-8.9); Platelet Count 136 K/mcL (140-400); Red Cell Distribution Width 13.7 % (11.5-14.5); Segmented Neutrophils % 74.2 %; White Blood Count 5.6 K/mcL (4.3-11.1)
[2020-06-08 09:34] LABS: BUN/Creatinine Ratio 21 (6-26); Blood Urea Nitrogen 15 mg/dL (8-23); Calcium 8.6 mg/dL (8.6-10.3); Carbon Dioxide 24 mEq/L (23-29); Chloride 108 mEq/L (98-107); Glucose 133 mg/dL (70-105); Osmolality,Calculated 283 (280-300); Potassium 4.2 mEq/L (3.5-5.1); Sodium 135 mEq/L (136-145); eGFR For African Americans > 60 (> 60); eGFR For Non-African Americans > 60 (> 60)
[2020-06-08] MEDS: Budesonide/Formoterol 160/4.5 1 PUFF INH IH SCH ×2 (11:31→20:50)
[2020-06-08] MEDS: Tiotropium 10 INH DOSE IH SCH (11:32)
[2020-06-08] MEDS ORDERED: Perflutren Lipid Microsphere 1.3 ML in 0.9 % Sodium Chloride 8.7 ML IVP PRN (12:59)
[2020-06-08] MEDS ORDERED: Ipratropium/Albuterol Neb 3 ML IH PRN (12:59)
[2020-06-08] MEDS ORDERED: Ondansetron 4 MG/2 ML VIAL IVP PRN (12:59)
[2020-06-08] MEDS ORDERED: *HR* Promethazine 25 MG/ML VIAL IM PRN (12:59)
[2020-06-09] MEDS: *HR* Heparin 5,000 UNIT/ML VIAL SQ SCH (05:49)
[2020-06-09] MEDS ORDERED: Aspirin 81 MG TAB.CHEW PO SCH (09:00)
[2020-06-09] MEDS ORDERED: Loratadine 10 MG TABLET PO SCH (09:00)
[2020-06-09] MEDS: *HR* Ticagrelor 90 MG TABLET PO SCH (09:18)
[2020-06-09] MEDS ORDERED: Tiotropium 10 INH DOSE IH SCH (10:00)
[2020-06-09] MEDS: Budesonide/Formoterol 160/4.5 1 PUFF INH IH SCH (10:09)
[2020-06-09 10:31] VITALS: BP 108/66
== END 2020-06-09 13:46 | disposition home or self-care (01) | DRG 247 ==
LOC: EMEROOARM 16:13 → ICNU 17:15 → 2NENU 06-08 19:18
PROVIDERS: ADMIT Internal Medicine Cardiovascular Disease; ATTEND Internal Medicine Cardiovascular Disease